=== PATIENT | male | born 1960 | race Caucasian/White ===

== ENCOUNTER 2018-10-30 20:31 | Emergency (ER) | payer OTHER ==
[~2018-10-30] VITALS: Ht 177.8 cm; Wt 79.5 kg
[~2018-10-30 20:31] MED LIST: BENA20TA4 PO; CEPH-443 PO; HYDR25TA6 PO; LEVO500T48 PO; SULF1TAB31 PO
[2018-10-30 20:54] VITALS: BP 136/78; PULSE 88; RESP 19; Ht 177.8 cm; Wt 79.5 kg
[2018-10-31] MEDS ORDERED: LIDOCAINE 2% (MDV) 20 ML INJ INJ ONE
== END 2018-10-31 00:42 | disposition home or self-care (01) ==
LOC: FTE 20:31
DX: L02.31 Cutaneous abscess of buttock (principal)
CPT/HCPCS: 10060; Z7502; Z7610